=== PATIENT | female | born 1940 | race Caucasian/White ===

== ENCOUNTER 2024-06-18 16:36 | Emergency (ER) | payer OTHER, BC ==
[2024-06-18] MEDS ORDERED: NA CHLORIDE 0.9% 500 ML ONE (18:01)
[2024-06-18 18:17] LABS: Absolute Eosinophils 0.1 K/uL (0-0.5); Absolute Lymphocytes (CBC) 1.2 K/uL (0.7-4.9); Absolute Monocytes 0.6 K/uL (0.1-1.3); Absolute Neutrophil 3.7 K/uL (1.8-8.0); Basophils % 0.8 % (0-1.3); Eosinophils % 1.5 % (0-4.4); Hematocrit 43.2 % (36.0-45.0); Hemoglobin 14.4 g/dL (12.0-15.0); Lymphocytes % 21.9 % (15.3-44.8); MCH 29.9 pg (27.0-35.0); MCHC 33.4 g/dL (32.0-36.0); MCV 89.5 fL (80-100); Neutrophils % 64.8 % (41.7-73.7); Nucleated Red Blood Cells % 0.2 % (0-0); Platelets 208 thou/uL (152-406); RBC Red Blood Cell Count 4.82 M/uL (3.86-4.86); Red Cell Distribution Width 14.6 % (12.1-15.2)
[2024-06-18 18:25] LABS: PT Prothrombin Time 12.8 SECONDS (10-13.0); PTT, Activated Partial Thromb 33.5 SECONDS (27.2-37.4); Protime INR 1.13
[2024-06-18 18:33] LABS: Anion Gap 6.1 mEq/L (5.0-15.0); Potassium 4.1 mEq/L (3.5-5.1)
[2024-06-18 18:37] LABS: Influenza A Ag Negative; Influenza B Ag Negative; SARS-CoV-2 Antigen Rapid Res Negative (Negative)
[2024-06-18 19:27] LABS: Specific Gravity 1.006 (1.005-1.030); Urine Bilirubin NEGATIVE (Negative); Urine Blood Negative (Negative); Urine Clarity Clear (Clear); Urine Color Colorless (Yellow); Urine Glucose NEGATIVE (Negative); Urine Ketones NEGATIVE (Negative); Urine Microscopic Reflex YN NO UMIC; Urine Nitrite NEGATIVE (Negative); Urine Protein NEGATIVE (Negative); Urine Urobilinogen Normal (Normal)
--- NOTE | 2024-06-18 19:39 | RAD REPORT ---
EXAM: CT Head Brain Wo Cont HISTORY: DIZZINESS COMPARISON: None TECHNIQUE: Multiple contiguous axial images were obtained for a CT of the brain without contrast. Sag ittal and coronal reformats were performed. One or more of the following dose reduction techniques were used: Automated exposure control, adjus tment of the mA and kV according to patient size, and iterative reconstruction. Unless otherwise specified, incidental findings do not require dedicated imaging follow-up. FINDINGS: No evidence of hydrocephalus, intracranial hemorrhage, or extra-axial fluid collection. The brain is normal in morphology. The calvarium is intact. The visualized paranasal sinuses and mastoid air cells are essentially clear . IMPRESSION: No evidence of acute intracranial abnormality.
--- NOTE | 2024-06-18 20:12 | RAD REPORT ---
EXAMINATION: CTA HEAD CLINICAL INDICATION: Female, 83 years old. possible TIA TECHNIQUE: Axial CT images were obtained through the head after intravenous contrast utilizing angiog raphic protocol with 3D post-processing (maximum intensity projection images, volume rendered images and/or shaded surface rendered images). One or more of the following dose reduction technique s were used: Automated exposure control, adjustment of the mA and/or kV according to patient size, and/or iterative reconstruction. Unless otherwise specified, incidental findings do not require dedic ated imaging follow-up. COMPARISON: No prior exam. FINDINGS: ICA: The petrous, cavernous, and supraclinoid segments of the bilateral internal carotid arteries are normal. DUNIA: Anterior cerebral arteries are normal bilaterally. The anterior communicating artery is patent. MCA: Middle cerebral arteries are normal bilaterally. JAVASCRIPT WEB DEVELOPER: Posterior cerebral arteries are normal bilaterally. Vertebrobasilar: The vertebral arteries are patent. The basilar artery is normal in appearance. 3D images confirm these findings. IMPRESSION: No evidence of large vessel occlusion or hemodynamically significant stenosis.
--- NOTE | 2024-06-18 20:18 | RAD REPORT ---
EXAMINATION: CT Neck Angio CLINICAL INDICATION: Female, 83 years old. [facility] possible TIA Bed Name: 3 TECHNIQUE: Axial CT images were obtained from the aortic arch to the skull base after intravenous con trast utilizing angiographic protocol. Multiplanar reformats, as well as 3D post-processing (maximum intensity projection images, volume rendered images and/or shaded surface rendered images) w ere generated and reviewed. One or more of the following dose reduction techniques were used: Automated exposure control, adjustment of the mA and/or kV according to patient size, and/or iterativ e reconstruction. Unless otherwise specified, incidental findings do not require dedicated imaging follow-up. COMPARISON: No prior exam. FINDINGS: AORTA: The imaged aortic arch is normal. Normal three-vessel configuration of the arch. CCA: No artifact The common carotid arteries are patent and normal in caliber. ICA/ECA: Bilateral internal and external carotid arteries are patent. There is no significant interna l carotid artery stenosis. VERTEBRAL: The cervical vertebral arteries are patent to the skull base. Vertebral arteries are codom inant. SOFT TISSUE: No significant neck soft tissue abnormalities. The visualized lung apices are clear. 3D images confirm these findings. IMPRESSION: No significant flow abnormality of the neck vessels is identified. NASCET criteria used to quantify ICA stenosis, with the following grading scheme: Mild 0-49% stenosis Moderate 50-69% stenosis Severe 70-99% stenosis Reference: [place] Symptomatic Carotid Endarterectomy Trial Collaborators; Claude RAMIREZ, Rossy BEAL, Vy RB, et al. Beneficial effect of carotid endarterectomy in symptomatic patients with high-grade carotid stenosis. N Engl J Med. 1990Nov 21;325(7):445-53.
--- NOTE | 2024-06-18 20:30 | EDPHYS ---
Physician Documentation [facility] Name: Chayo Montemayor Age: 83 yrs Sex: Female : 1940 Arrival Date: 06/18/2024 Time: 16:36 Bed 8 Private MD: ED Physician Ethan Burt HPI: 06/18 17:46 This 83 yrs old Female presents to ER via Ambulatory with complaints of Dizziness, rn Fever. 17:46 The patient presents with dizziness, feeling off balance. Onset: The symptoms/episode rn began/occurred just prior to arrival. Modifying factors: The symptoms are alleviated by nothing, the symptoms are aggravated by standing up, changing position. Severity of symptoms: At their worst the symptoms were moderate in the emergency department the symptoms have resolved. The patient has not experienced similar symptoms in the past. Patient reports had a short episode approximately 10 to 20 minutes of feeling like she was falling to the left side. No vision changes or speech changes. No focal neurological deficit otherwise. Has had a stroke before but was not a dizziness issue. Describes episode before was in amaurosis fugax. Only takes aspirin. Dizziness has completely resolved and currently denies any neurological deficits. No chest pain or shortness of breath during episode. No new medication changes.. Historical: - Allergies: 17:31 No Known Allergies; ph - Home Meds: 17:31 rosuvastatin 10 mg oral tablet [Active]; amlodipine 5 mg tablet [Active]; carvedilol ph 6.25 mg oral tablet [Active]; aspirin 81 mg Oral tablet,chewable [Active]; - PMHx: 17:31 CVA; Hypertensive disorder; Hypercholesterolemia; ph - PSHx: 17:31 cancer removed; Appendectomy; ph - Immunization history:: Adult Immunizations up to date, Pneumococcal vaccine is up to date, Flu vaccine is up to date. - Infectious Disease History:: Denies. - Social history:: Smoking status: Patient denies any tobacco usage or history of. - Family history:: not pertinent. - Hospitalizations: : No recent hospitalization is reported. ROS: 17:46 Constitutional: Negative for fever, chills, and weight loss, Neck: Negative for injury, rn pain, and swelling, Cardiovascular: Negative for chest pain, palpitations, and edema, Respiratory: Negative for shortness of breath, cough, wheezing, and pleuritic chest pain, Abdomen/GI: Negative for abdominal pain, nausea, vomiting, diarrhea, and constipation, Back: Negative for injury and pain, MS/Extremity: Negative for injury and deformity, Skin: Negative for injury, rash, and discoloration, Neuro: Negative for headache, weakness, numbness, tingling, and seizure, Exam: 17:46 Constitutional: This is a well developed, well nourished patient who is awake, alert, rn and in no acute distress. Head/Face: Normocephalic, atraumatic. Eyes: Pupils equal round and reactive to light, extra-ocular motions intact. No nystagmus Cardiovascular: Regular rate and rhythm. No pulse deficits. Respiratory: No increased work of breathing, no retractions or nasal flaring. MS/ Extremity: Pulses equal, no cyanosis. Neurovascular intact. Full, normal range of motion. Equal circumference. Neuro: Awake and alert, GCS 15, oriented to person, place, time, and situation. Cranial nerves II-XII grossly intact. Motor strength 5/5 in all extremities. Sensory grossly intact. Cerebellar exam normal. Vital Signs: 17:22 BP 149 / 74; Pulse 66; Resp 18; Temp 98.4; Pulse Ox 95% on R/A; Weight 87.09 kg; Height ph 5 ft. 3 in. ; 18:29 BP 167 / 79; Pulse 70; Resp 18; Pulse Ox 97% on R/A; ld1 20:33 BP 141 / 77; Pulse 71; Resp 15; Pulse Ox 96% on R/A; cm10 17:22 Body Mass Index 34.01 (87.09 kg, 160.02 cm) ph MDM: 16:45 Medical Screening Exam initiated rn 21:08 Differential diagnosis: CVA, TIA, intracranial hemorrhage. Data reviewed: vital signs, rt nurses notes, lab test result(s), EKG, radiologic studies. Consideration of Admission/Observation Escalation of care including admission/observation considered. I recommended the patient be admitted to the hospital for further stroke workup, she states that she does not wish to be at the hospital at this time, wishes to follow-up with her neurologist as an outpatient. Will start patient on Plavix for dual antiplatelet coverage, to return precautions were discussed. Patient understands her condition as well as the risks of leaving and has decision-making capacity.. I considered the following discharge prescriptions or medication management in the emergency department Medications were administered in the Emergency Department. See MAR. Independent interpretation of the following test(s) in the Emergency Department CT Scan: My interpretation is No intracranial hemorrhage seen on interpretation of CT scan images. Care significantly affected by the following chronic conditions: Hypertension. Counseling: I had a detailed discussion with the patient and/or guardian regarding the historical points, exam findings, and any diagnostic results supporting the discharge/admit diagnosis, lab results, radiology results. Response to treatment: the patient's symptoms have resolved after treatment. Refusal of service: The patient/guardian displays adequate decision making capability and despite a detailed discussion of alternatives, benefits, risks, and consequences refuses: Admission to the hospital for further work-up and treatment. 06/18 16:47 Order name: COVID-19 Ag + Flu A+B Ag; Complete Time: 19:51 rn 06/18 16:47 Order name: Urinalysis w/ reflexes; Complete Time: 19:51 rn 06/18 17:30 Order name: Basic Metabolic Panel; Complete Time: :51 rn 06/18 17:30 Order name: CBC with Diff; Complete Time: :51 rn 06/18 17:30 Order name: High Sensitivity Troponin; Complete Time: 19:51 rn 06/18 17:30 Order name: Protime (+inr); Complete Time: 19:51 rn 06/18 17:30 Order name: Ptt, Activated; Complete Time: 19:51 rn 06/18 17:30 Order name: CT Head Angio; Complete Time: 20:21 rn 06/18 17:30 Order name: CT Neck Angio; Complete Time: 20:21 rn 06/18 19:13 Order name: Head Brain Wo Cont; Complete Time: 19:51 EDMS 06/18 17:30 Order name: Accucheck; Complete Time: 18:12 rn 06/18 17:30 Order name: Cardiac monitoring; Complete Time: 18:11 rn 06/18 17:30 Order name: EKG - Nurse/Tech; Complete Time: 18:12 rn 06/18 17:30 Order name: IV Saline Lock; Complete Time: 18:12 rn 06/18 17:30 Order name: Labs collected and sent; Complete Time: 18:12 rn 06/18 17:30 Order name: NPO; Complete Time: 17:50 rn 06/18 17:30 Order name: O2 Per Protocol; Complete Time: 17:50 rn 06/18 17:30 Order name: O2 Sat Monitoring; Complete Time: 17:50 rn 06/18 17:30 Order name: Stroke Swallow Screen; Complete Time: 19:29 rn Administered Medications: 18:12 Drug: NS 0.9% IV 500 ml 500 ml IV at 1 bolus once; to be given as a bolus over 30 ld1 minutes Volume: 500 ml; Route: IV; Rate: 1 bolus; Site: right antecubital; 18:50 Follow up: Response: No adverse reaction; IV Status: Completed infusion; IV Intake: cm10 500ml Disposition Summary: 06/18/24 20:30 Discharge Ordered Notes: Location: Home rt Problem: new rt Symptoms: are resolved rt Condition: Stable rt Diagnosis - Transient ischemic attack rt Followup: rt - With: Private Physician - When: 1 - 2 days - Reason: Discharge Instructions: - Discharge Summary Sheet rt - Transient Ischemic Attack rt Forms: - Medication Reconciliation Form rt - Antibiotic Education rt - Prescription Opioid Use rt - Patient Portal Instructions rt - Leadership Thank You Letter rt Prescriptions: - Plavix 75 mg Oral tablet - take 1 tablet ORAL route once daily; 30 tablet; Refills: 0, Product Selection rt Permitted Signatures: Dispatcher [employer] EDMS Sacha Alonzo MD MD rn Hall, Patricia, RN RN Rosy Bach RN RN ld1 Ethan Burt MD MD rt Minna Simmons RN cm10 Corrections: (The following items were deleted from the chart) 17:31 17:31 BASIC METABOLIC PANEL+C.LAB.BRZ ordered. EDMS EDMS 17: 17:31 CBC+H.LAB.BRZ ordered. EDMS EDMS 17:31 17:31 Troponin High Sensitivity+C.LAB.BRZ ordered. EDMS EDMS 17:31 17:31 PROTIME (+INR)+COAG.LAB.BRZ ordered. EDMS EDMS 17:31 17:31 PTT, ACTIVATED+COAG.LAB.BRZ ordered. EDMS EDMS 17:31 17:31 Head Angio+CT.RAD.BRZ ordered. EDMS EDMS 17:31 17:31 Neck Angio+CT.RAD.BRZ ordered. EDMS EDMS
--- NOTE | 2024-06-18 20:30 | ER ---
[facility] Name: Chayo Montemayor Age: 83 yrs Sex: Female : 1940 Arrival Date: 06/18/2024 Time: 16:36 Bed 8 Private MD: Diagnosis: Transient ischemic attack Presentation: 06/18 17:22 Chief complaint: Patient states: Dizziness, chills, repeated belching, facial flushing, ph and face felt hot, after she woke up from a nap, states that symptoms have improved. Coronavirus screen:. Ebola Screen: No symptoms or risks identified at this time. Initial Sepsis Screen: Does the patient meet any 2 criteria? No. Patient's initial sepsis screen is negative. Does the patient have a suspected source of infection? No. Patient's initial sepsis screen is negative. Risk Assessment: Do you want to hurt yourself or someone else? Patient reports no desire to harm self or others. Onset of symptoms was June 18, 2024. 17:22 Method Of Arrival: Ambulatory ph 17:22 Acuity: GERHARD 3 ph Historical: - Allergies: 17:31 No Known Allergies; ph - Home Meds: 17:31 rosuvastatin 10 mg oral tablet [Active]; amlodipine 5 mg tablet [Active]; carvedilol ph 6.25 mg oral tablet [Active]; aspirin 81 mg Oral tablet,chewable [Active]; - PMHx: 17:31 CVA; Hypertensive disorder; Hypercholesterolemia; ph - PSHx: 17:31 cancer removed; Appendectomy; ph - Immunization history:: Adult Immunizations up to date, Pneumococcal vaccine is up to date, Flu vaccine is up to date. - Infectious Disease History:: Denies. - Social history:: Smoking status: Patient denies any tobacco usage or history of. - Family history:: not pertinent. - Hospitalizations: : No recent hospitalization is reported. Screenin:29 [facility] ED Fall Risk Assessment (Adult) History of falling in the last 3 months, ld1 including since admission No falls in past 3 months (0 pts) Confusion or Disorientation No (0 pts) Intoxicated or Sedated No (0 pts) Impaired Gait No (0 pts) Mobility Assist Device Used No (0 pt) Altered Elimination No (0 pt) Score/Fall Risk Level 0 - 2 = Low Risk Oriented to surroundings, Hourly rounding (assess needs \T\ fall precautionary measures) done. Abuse screen: Denies threats or abuse. Denies injuries from another. Nutritional screening: No deficits noted. Tuberculosis screening: No symptoms or risk factors identified. 19:30 [place] Swallow Protocol Exclusion Criteria: NPO for medical/surgical reason by provider cm10 order No Tracheostomy tube present No No thin liquids due to preexisting dysphagia/baseline modified diet thickened liquids No Exclusion Criteria Result: Proceed Brief Cognitive Screen What is your name? Normal, Where are you right now? Normal, What year is it? Normal. Oral Mechanism Examination Facial Symmetry: Normal, Motion: Normal, Lip Closure: Normal, Oral Mechanism Result: Normal. 3 oz Water Swallow Challenge: Pt able to drink all water without stopping, coughing, choking or throat clearing: Yes Result: PASS. Assessment: 18:29 General: Appears in no apparent distress. comfortable, Behavior is calm, cooperative, ld1 appropriate for age. Pain: Denies pain. Neuro: Level of Consciousness is awake, alert, obeys commands, Oriented to person, place, time, situation. Neuro: Reports dizziness. Cardiovascular: Capillary refill < 3 seconds Patient's skin is warm and dry. Rhythm is sinus rhythm. Respiratory: Airway is patent Respiratory effort is even, unlabored. GI: Abdomen is round non-distended. : No signs and/or symptoms were reported regarding the genitourinary system. EENT: No signs and/or symptoms were reported regarding the EENT system. Derm: No signs and/or symptoms reported regarding the dermatologic system. Musculoskeletal: No signs and/or symptoms reported regarding the musculoskeletal system. Vital Signs: 17:22 BP 149 / 74; Pulse 66; Resp 18; Temp 98.4; Pulse Ox 95% on R/A; Weight 87.09 kg; Height ph 5 ft. 3 in. ; 18:29 BP 167 / 79; Pulse 70; Resp 18; Pulse Ox 97% on R/A; ld1 20:33 BP 141 / 77; Pulse 71; Resp 15; Pulse Ox 96% on R/A; cm10 17:22 Body Mass Index 34.01 (87.09 kg, 160.02 cm) ED Course: 16:38 Patient arrived in ED. mr 16:45 Sacha Alonzo MD is Attending Physician. rn 17:26 Triage completed. ph 17:32 Radiology exam delayed due to lab results not completed at this time. (BUN/Creatinine) nj IV insertion attempt and/or patient not having appropriate IV at this time. 17:33 Arm band placed on Patient placed in an exam room, on a stretcher. ph 18:06 Attending Physician role handed off by Sacha Alonzo MD rt 18:06 Ethan Burt MD is Attending Physician. rt 18:12 COVID-19 Ag + Flu A+B Ag Sent. ld1 18:13 Inserted saline lock: 18 gauge in right antecubital area, using aseptic technique. id 18:29 Patient has correct armband on for positive identification. Placed in gown. Bed in low ld1 position. Call light in reach. Side rails up X2. groundwater monitoring technician on. Pulse ox on. NIBP on. Door closed. Noise minimized. Warm blanket given. 18:29 No provider procedures requiring assistance completed. ld1 19:08 Minna Simmons, RN is Primary Nurse. cm10 19:19 CT Head Angio In Process Unspecified. EDMS 19:19 CT Neck Angio In Process Unspecified. EDMS 19:19 Head Brain Wo Cont In Process Unspecified. EDMS 20:05 Warm blanket given. Assisted to bathroom. Linen changed. vk 20:38 Provided Education on: post er care. bm8 20:38 IV discontinued, intact, bleeding controlled, No redness/swelling at site. Pressure bm8 dressing applied. Administered Medications: 18:12 Drug: NS 0.9% IV 500 ml 500 ml IV at 1 bolus once; to be given as a bolus over 30 ld1 minutes Volume: 500 ml; Route: IV; Rate: 1 bolus; Site: right antecubital; 18:50 Follow up: Response: No adverse reaction; IV Status: Completed infusion; IV Intake: cm10 500ml Medication: 18:29 VIS not applicable for this client. ld1 Intake: 18:50 IV: 500ml; Total: 500ml. cm10 Outcome: 20:30 Discharge ordered by . rt 20:38 Discharged to home via wheelchair, with family, bm8 20:38 Condition: stable 20:38 Discharge instructions given to patient, family, Instructed on discharge instructions, follow up and referral plans. no drinking with medication, no driving heavy equipment, medication usage, safety practices, Demonstrated understanding of instructions, follow-up care, medications, 20:39 Prescriptions given X 1, bm8 20:39 Patient left the ED. bm8 Signatures: Dispatcher [employer] EDMS Cassie Martinez, Reg Reg mr Sacha Alonzo MD MD rn Hall, Patricia, RN RN Clyde, Rosy Upton RN RN ld1 Ethan Burt MD MD rt Minna Simmons RN RN cm10 Aleta Brady Brad, RN RN bm8 Patricia Kaiser RN RN id Corrections: (The following items were deleted from the chart) 20:34 20:33 BP 141 / 77; Pulse 71bpm; Resp 15bpm; Pulse Ox 93% RA; cm10 cm10
[2024-06-18 21:20] VITALS: TEMP 98.4
[2024-06-18 21:23] VITALS: BP 141/77; O2SAT 96
--- NOTE | 2024-06-20 14:45 | EKG ---
Test Date: 2024-06-18 Test Time: 18:09:59 Butter Printer: LUIS MEASUREMENT RESULTS: Intervals: Rate: 65 NM: 196 QRSD: 94 QT: 432 QTc: 449 Gratis: P: 76 NM: 196 QRS: -18 T: 11 INTERPRETIVE STATEMENTS: Normal sinus rhythm Septal infarct, age undetermined Abnormal ECG Compared to ECG 02/17/2013 08:25:39 Myocardial infarct finding now present Sinus bradycardia no longer present Electronically Signed On 06-20-24 14:41:29 CDT by Fausto Salvador
== END 2024-06-18 20:39 | disposition home or self-care (01) ==
LOC: ER 16:36
DX: G45.9 Transient cerebral ischemic attack, unspecified (principal); I10 Essential (primary) hypertension; Z86.73 Personal history of transient ischemic attack (TIA), and cerebral infarction without residual deficits; Z11.52 Encounter for screening for COVID-19; Z79.82 Long term (current) use of aspirin
CPT/HCPCS: 85025; 80048; 36415; 85610; 85730; 81003; 84484; 70450; 70496; 70498; 87428; Q9967; J7040; 93005; 96360; 99285